=== PATIENT | male | born 1945 | race Caucasian/White ===

== ENCOUNTER 2017-09-18 10:04 | Emergency (ER) | payer OTHER, MEDICARE, BC ==
--- NOTE | 2017-09-18 12:15 | EDM.PDOC ---
ED HPI GENERAL MEDICAL PROBLEM - General Stated Complaint: CATH ISSUE Time Seen by Provider: 09/18/17 11:03 Source of Information: Reports: Patient History Limitations: Reports: No Limitations - History of Present Illness INITIAL COMMENTS - FREE TEXT/NARRATIVE: c/o suprapubic catheter came out pt not sure how it came out, placed ~6m ago, replaced in ED 1w ago after the end broke off, then [facility] as [facility] wanted a different [facility] here and gives him metolazone on a prn schedule based on his weight h/o prostate CA 20y ago with hormone injections, 20 external beam RT, then later prostate seeds, now with scarred and obstructed urethera - Related Data Allergies Allergy/AdvReac Type Severity Reaction Status Date / Time latex Allergy Hives Verified 09/17/16 21:00 sulfamethoxazole Allergy Hives Verified 09/17/16 21:00 [From Bactrim] trimethoprim [From Bactrim] Allergy Hives Verified 09/17/16 21:00 Home Meds: Home Meds Allopurinol [Zyloprim] 300 mg PO DAILY 09/17/16 [History] Amoxicillin [Amoxil] 500 mg PO TID 09/17/16 [History] Budesonide/Formoterol [Symbicort 160-4.5 MCG] 1 puff INH BID 09/17/16 [History] Clotrimazole [Clotrimazole 1%] 1 gm TOP DAILY 09/17/16 [History] Eplerenone [Inspra] 25 mg PO DAILY 09/17/16 [History] FLUoxetine HCl [Prozac] 20 mg PO DAILY 09/17/16 [History] Furosemide 80 mg PO BID 09/17/16 [History] Isosorbide Mononitrate [Imdur] 30 mg PO DAILY 09/17/16 [History] Levothyroxine Sodium [Synthroid] 150 mcg PO DAILY 09/17/16 [History] Nitroglycerin 0.4 mg SL ASDIRECTED PRN 09/17/16 [History] Tamsulosin HCl 0.4 mg PO DAILY 09/17/16 [History] Tiotropium [Spiriva HandiHaler] 18 mcg IS DAILY 09/17/16 [History] atorvaSTATin Calcium [Atorvastatin Calcium] 10 mg PO DAILY 09/17/16 [History] glipiZIDE [Glucotrol XL] 10 mg PO BID 09/17/16 [History] hydrALAZINE HCl [Hydralazine HCl] 10 mg PO BID 09/17/16 [History] metFORMIN HCl [Metformin HCl] 1,000 mg PO BID 09/17/16 [History] Social & Family History - Tobacco Use Smoking Status *Q: Former Smoker Used Tobacco, but Quit: No Second Hand Smoke Exposure: No - Caffeine Use Caffeine Use: Reports: Coffee - Recreational Drug Use Recreational Drug Use: No ED ROS GENERAL - Review of Systems Review Of Systems: See Below Constitutional: Reports: No Symptoms HEENT: Reports: No Symptoms Respiratory: Reports: No Symptoms Cardiovascular: Reports: No Symptoms Endocrine: Reports: No Symptoms GI/Abdominal: Reports: No Symptoms : Reports: Other (suprapubic cath out) Musculoskeletal: Reports: No Symptoms Skin: Reports: No Symptoms Neurological: Reports: No Symptoms Psychiatric: Reports: No Symptoms Hematologic/Lymphatic: Reports: No Symptoms Immunologic: Reports: No Symptoms ED EXAM, RENAL/ - Physical Exam Exam: See Below Exam Limited By: No Limitations General Appearance: Alert, WD/WN, No Apparent Distress (Male) Exam: Other (urine soaking shirt and bands, cath replaced easily, filled 8 cc NS, balloon resisted pull back, 200 cc yellow urine in bag, no pretib edema) Neurological: Alert, Oriented Psychiatric: Normal Affect, Normal Mood Skin Exam: Warm, Dry, Intact, Normal Color, No Rash Lymphatic: No Adenopathy Departure - Departure Time of Disposition: 12:21 Disposition: Home, Self-Care 01 Condition: Good Clinical Impression: Suprapubic catheter dysfunction - Discharge Information Referrals: Keagan Mortensen MD [Primary Care Provider] - Additional Instructions: Continue usual routine. See your doctors as scheduled.
[2017-09-18 21:30] VITALS: BP 125/62
== END 2017-09-18 13:10 | disposition home or self-care (01) ==
LOC: FB.ED 10:04
DX: T83.098A Other mechanical complication of other urinary catheter, initial encounter (principal); Z87.891 Personal history of nicotine dependence; Z79.899 Other long term (current) drug therapy; Z88.1 Allergy status to other antibiotic agents; Z88.2 Allergy status to sulfonamides; Z91.040 Latex allergy status
CPT/HCPCS: 99282; 99283